=== PATIENT | male | born 1970 | race Caucasian/White ===

== ENCOUNTER 2016-11-25 05:29 | Outpatient (CLI) | payer BC ==
[~2016-11-25] VITALS: Ht 182.9 cm; Wt 108.9 kg
[2016-11-25] MEDS ORDERED: MULT1TAB69 PO (11:10)
[2016-11-25] MEDS ORDERED: CIDE300T3 PO (11:10)
[2016-11-25] MEDS ORDERED: CHOL100045 PO (11:10)
== END 2016-11-25 11:13 ==
LOC: PREOP 05:29
PROVIDERS: ATTEND Surgery
DX: Z01.818 Encounter for other preprocedural examination (principal); K21.9 Gastro-esophageal reflux disease without esophagitis

== ENCOUNTER 2016-11-30 08:05 | Day surgery (SDC) | payer BC ==
[~2016-11-30] VITALS: Ht 182.9 cm; Wt 108.9 kg
[~2016-11-30 08:05] MED LIST: CHOL100045 PO; CIDE300T3 PO; MULT1TAB69 PO
[2016-11-30] MEDS ORDERED: LACTATED RINGERS 1,000 ML IV STA (08:14)
[2016-11-30] MEDS ORDERED: HURRICAINE EXT TUBE (BENZOCAINE) XX PRN (08:15)
[2016-11-30] MEDS ORDERED: LACTATED RINGERS 1,000 ML IV ONE (08:24)
[2016-11-30 08:27] VITALS: BP 125/83
[2016-11-30] MEDS ORDERED: MIDAZOLAM 2 MG/2 ML (VERSED) VIAL ONE (08:42)
[2016-11-30] MEDS ORDERED: proPOfol 200 MG/20 ML (DIPRIVAN) VIAL IV ONE (08:42)
[2016-11-30] MEDS ORDERED: HURRICAINE EXT TUBE (BENZOCAINE) ONE (08:45)
--- NOTE | 2016-11-30 08:48 | Progress Note-Pre Operative ---
Pre-Operative Progress Note H&P Reviewed The H&P was reviewed, patient examined and no changes noted. Date Seen by Provider: Nov 30, 2016 Time Seen by Provider: 08:47 Date H&P Reviewed: Nov 30, 2016 Time H&P Reviewed: 08:48 Pre-Operative Diagnosis: GERD LILLIE LOVE DO Nov 30, 2016 8:48 am
[2016-11-30] MEDS ORDERED: PANT40TA2 PO (09:10)
--- NOTE | 2016-11-30 09:12 | Discharge Inst-Simple/Standard ---
Discharge Inst-Standard Discharge Medications New, Converted or Re-Newed RX: Transmitted to Pharmacy Patient Instructions/Follow Up Plan of Care/Instructions/FU: 2 weeks Aminah Activity as Tolerated: Yes Discharge Diet: Regular Diet LILLIE LOVE DO Nov 30, 2016 9:12 am
[2016-11-30] MEDS ORDERED: LACTATED RINGERS 1,000 ML IV SCH (09:15)
[2016-11-30] MEDS ORDERED: HURRICAINE EXT TUBE (BENZOCAINE) XX ONE (09:15)
--- NOTE | 2016-11-30 09:15 | Progress Note-Post Operative ---
Post-Operative Progess Note Surgeon (s)/Physical Therapist Aide (s) Surgeon LILLIE LOVE DO Physical Therapist Aide: na Pre-Operative Diagnosis GERD Post-Operative Diagnosis reflux esophagitis, gastric polyps Procedure & Operative Findings Date of Procedure 11/30/16 Procedure Performed/Findings egd c biopsies Anesthesia Type per [facility] Estimated Blood Loss Estimated blood loss (mL): scant Specimens/Packing Specimens Removed antrum, ge junction LILLIE LOVE DO Nov 30, 2016 9:15 am
[2016-11-30 09:25] VITALS: BP 116/73
--- NOTE | 2016-11-30 09:43 | OPERATIVE REPORT ---
DATE OF SERVICE: 11/30/2016 PREOPERATIVE DIAGNOSIS: Gastroesophageal reflux disease. POSTOPERATIVE DIAGNOSIS: Reflux esophagitis. Gastric polyps. PROCEDURE: EGD with biopsies. SURGEON: Lillie Burr DO ANESTHESIA: Per MDA. ESTIMATED BLOOD LOSS: Scant. SPECIMENS: Antrum and GE junction. INDICATIONS: The patient is a 46-year-old male with gastroesophageal reflux disease. He has been taking Prilosec, which does not have control of his symptoms. He understands risks and benefits of procedure and wished to proceed with procedure. Consent was signed in the chart. PROCEDURE: The patient was taken to the endoscopy suite, placed in left lateral recumbent position. Timeout was performed. Scope was inserted in mouth, down the esophagus, stomach and into the duodenum without difficulty. There were no polyps, masses or ulcerations. Scope was then slowly retracted back into the stomach, which was further insufflated. Some small benign appearing gastric polyps present. Biopsy, antrum was obtained. Scope was retroflexed noting no hiatal hernia, no other pathology. Scope was returned to its normal position, slowly withdrawn. GE junction had some erythematous changes consistent with some reflux esophagitis. Biopsy was obtained. Scope was then slowly retracted until completely removed, noting no other pathology. The patient tolerated the procedure well without any complications and was taken to recovery room in stable condition. RECOMMENDATIONS: The patient will be switched to Protonix 40 mg daily to see how he is doing with his symptoms. We will await pathology results. Depending on pathology results would repeat scope anywhere from 6 months to 2 years. Job ID: [id number] DocumentID: [id number] Dictated Date: 11/30/2016 09:17:34 Mortgage Loan Specialist Date: 11/30/2016 09:42:23 Dictated By: LILLIE BURR DO
[2016-11-30 09:45] VITALS: BP 124/93
[2016-11-30 09:50] VITALS: BP 124/93
== END 2016-11-30 09:50 | disposition home or self-care (01) ==
LOC: ENDO 08:05
PROVIDERS: ATTEND Surgery
DX: K21.0 Gastro-esophageal reflux disease with esophagitis (principal); K31.7 Polyp of stomach and duodenum; K22.70 Barrett's esophagus without dysplasia
CPT/HCPCS: 88305

== ENCOUNTER → 2017-07-25 | Outpatient (CLI) | payer BC ==
[~2017-07-25] MED LIST changes: +PANT40TA2 PO
--- NOTE | 2017-07-25 13:46 | Diagnostic Imaging Report ---
PROCEDURE: US Hepatic (Liver). TECHNIQUE: Multiple real-time grayscale images were obtained over the right upper quadrant in various projections. INDICATION: Esophageal varices. Liver is enlarged at 22.5 cm. There is increased echogenicity throughout the liver consistent with hepatic steatosis. No discrete liver mass is identified. The gallbladder is without stones or sludge. No wall thickening or pericholecystic fluid is seen. There is no biliary ductal dilatation. Pancreas was obscured by bowel gas. The right kidney is unremarkable. There is no ascites. IMPRESSION: Hepatomegaly and hepatic steatosis. No other significant abnormality is detected. Dictated by: Dictated on workstation # [id number]
== END ==
LOC: RAD 07:45
PROVIDERS: ATTEND Internal Medicine Gastroenterology
DX: K76.0 Fatty (change of) liver, not elsewhere classified (principal); I85.00 Esophageal varices without bleeding
CPT/HCPCS: 76705

== ENCOUNTER 2017-12-01 20:00 | Outpatient (CLI) | payer BC | END 2017-12-02 05:40 | disposition home or self-care (01) | LOC: SLEEP 20:00 | PROVIDERS: ATTEND Internal Medicine | DX: G47.33 Obstructive sleep apnea (adult) (pediatric) (principal); G47.10 Hypersomnia, unspecified; R06.83 Snoring | CPT/HCPCS: 95811 ==

== ENCOUNTER 2018-05-02 05:41 | Outpatient (CLI) | payer BC ==
[~2018-05-02] VITALS: Ht 182.9 cm; Wt 108.9 kg
[2018-05-02] MEDS ORDERED: CYAN50008 PO (10:49)
== END 2018-05-02 11:56 | disposition home or self-care (01) ==
LOC: PREOP 05:41
PROVIDERS: ATTEND Surgery
DX: Z01.818 Encounter for other preprocedural examination (principal)

== ENCOUNTER 2018-05-09 07:12 | Day surgery (SDC) | payer BC ==
[~2018-05-09] VITALS: Ht 182.9 cm; Wt 108.9 kg
[~2018-05-09 07:12] MED LIST changes: +CYAN50008 PO; +LACTATED RINGERS 1,000 ML IV ONE
--- OUTSIDE RECORDS SUMMARY | 2018-05-09 07:15 | XMS REPORT | Continuity of Care Document ---
Author Author [facility] Organization [facility] Address Unknown Phone Unavailable Allergies Active Description Code Type Severity Reaction Onset Reported/Identified Relationship to Patient Clinical Status Yes No Known Drug Allergies [id number] Drug Allergy Unknown N/A 05/02/2018 Medications There is no data. Problems Date Dx Coded Attending Type Code Diagnosis Diagnosed By 02/28/2014 Ot 327.23 05/24/2014 Ot 327.23 11/14/2014 BETH BYNUM DO Ot 511.0 11/14/2014 Ot 327.23 11/14/2014 BETH BYNUM DO Ot 511.0 01/07/2015 Ot 327.23 01/07/2015 BETH BYNUM DO Ot 511.0 07/20/2015 Ot 327.23 OBSTRUCTIVE SLEEP APNEA (ADULT) (PEDIATR 07/20/2015 BETH BYNUM DO Ot 511.0 PLEURISY W/O EFFUS OR TB 08/12/2015 Ot 327.23 OBSTRUCTIVE SLEEP APNEA (ADULT) (PEDIATR 08/12/2015 BETH BYNUM DO Ot 511.0 PLEURISY W/O EFFUS OR TB 09/30/2015 BETH BYNUM DO Ot 511.0 PLEURISY W/O EFFUS OR TB 10/02/2015 BETH BYNUM DO Ot 511.0 PLEURISY W/O EFFUS OR TB 01/06/2016 BETH BYNUM DO Ot 511.0 PLEURISY W/O EFFUS OR TB 01/07/2016 BETH BYNUM DO Ot 511.0 PLEURISY W/O EFFUS OR TB 08/20/2016 BETH BYNUM DO Ot 511.0 PLEURISY W/O EFFUS OR TB 11/18/2016 BETH BYNUM DO Ot 511.0 PLEURISY W/O EFFUS OR TB 11/25/2016 LILLIE LOVE DO Ot K21.9 GASTRO-ESOPHAGEAL REFLUX DISEASE WITHOUT 11/25/2016 LILLIE LOVE DO Ot Z01.818 ENCOUNTER FOR OTHER PREPROCEDURAL EXAMIN 11/30/2016 LILLIE LOVE DO Ot K21.0 GASTRO-ESOPHAGEAL REFLUX DISEASE WITH ES 11/30/2016 LOVE DOLILLIE D Ot K22.70 CONTEH'S ESOPHAGUS WITHOUT DYSPLASIA 11/30/2016 LOVE DOLILLIE D Ot K31.7 POLYP OF STOMACH AND DUODENUM 12/02/2016 LOVE DOLILLIE D Ot K21.0 GASTRO-ESOPHAGEAL REFLUX DISEASE WITH ES 12/02/2016 LOVE DOLILLIE Ot K22.70 CONTEH'S ESOPHAGUS WITHOUT DYSPLASIA 12/02/2016 LOVE DOLILLIE Ot K31.7 POLYP OF STOMACH AND DUODENUM 12/07/2016 LILLIE LOVE DO Ot K21.0 GASTRO-ESOPHAGEAL REFLUX DISEASE WITH ES 12/07/2016 LILLIE LOVE DO Ot K22.70 CONTEH'S ESOPHAGUS WITHOUT DYSPLASIA 12/07/2016 LILLIE LOVE DO Ot K31.7 POLYP OF STOMACH AND DUODENUM 06/28/2017 BETH BYNUM DO Ot 511.0 PLEURISY W/O EFFUS OR TB 07/22/2017 BETH BYNUM DO Ot 511.0 PLEURISY W/O EFFUS OR TB 07/26/2017 ERIKA MAZARIEGOS DO Ot I85.00 ESOPHAGEAL VARICES WITHOUT BLEEDING 07/26/2017 ERIKA MAZARIEGOS DO Ot K76.0 FATTY (CHANGE OF) LIVER, NOT ELSEWHERE C 08/10/2017 ERIKA MAZARIEGOS DO Ot I85.00 ESOPHAGEAL VARICES WITHOUT BLEEDING 08/10/2017 ERIKA MAZARIEGOS DO Ot K76.0 FATTY (CHANGE OF) LIVER, NOT ELSEWHERE C 11/25/2017 BETH BYNUM DO Ot 511.0 PLEURISY W/O EFFUS OR TB 11/25/2017 ERIKA MAZARIEGOS DO Ot I85.00 ESOPHAGEAL VARICES WITHOUT BLEEDING 11/25/2017 ERIKA MAZARIEGOS DO Ot K76.0 FATTY (CHANGE OF) LIVER, NOT ELSEWHERE C 12/02/2017 BETH BYNUM DO Ot G47.10 HYPERSOMNIA, UNSPECIFIED 12/02/2017 BETH BYNUM DO Ot G47.33 OBSTRUCTIVE SLEEP APNEA (ADULT) (PEDIATR 12/02/2017 BYNUM DO, BETH J Ot R06.83 SNORING 12/05/2017 BYNUM DO, BETH J Ot G47.10 HYPERSOMNIA, UNSPECIFIED 12/05/2017 BYNUM DO, BETH J Ot G47.33 OBSTRUCTIVE SLEEP APNEA (ADULT) (PEDIATR 12/05/2017 BYNUM DO, BETH Bah Ot R06.83 SNORING 12/05/2017 BYNUM DO, BETH Bah Ot G47.10 HYPERSOMNIA, UNSPECIFIED 12/05/2017 BYNUM DO, BETH Niurka Ot G47.33 OBSTRUCTIVE SLEEP APNEA (ADULT) (PEDIATR 12/05/2017 BYNUM DO, BETH Bah Ot R06.83 SNORING 12/07/2017 BYNUM DO, BETH Bah Ot G47.10 HYPERSOMNIA, UNSPECIFIED 12/07/2017 BYNUM DO, BETH Bah Ot G47.33 OBSTRUCTIVE SLEEP APNEA (ADULT) (PEDIATR 12/07/2017 BYNUM DO, BETH Bah Ot R06.83 SNORING 05/02/2018 LILLIE LOVE DO Ot Z01.818 ENCOUNTER FOR OTHER PREPROCEDURAL EXAMIN 05/03/2018 LILLIE LOVE DO Ot Z01.818 ENCOUNTER FOR OTHER PREPROCEDURAL EXAMIN Procedures There is no data. Results There is no data. Encounters ACCT No. Visit Date/Time Discharge Status Pt. Type Provider Facility Loc./Unit Complaint [id number] 05/02/2018 05:41:00 05/02/2018 11:56:00 DIS Outpatient LILLIE LOVE DO [facility] PREOP COLONOSCOPY [id number] 12/01/2017 20:00:00 12/02/2017 05:40:00 DIS Outpatient BETH BYNUM DO [facility] SLEEP G47.33 OBSTRUCTIVE SLEEP APNEA [id number] 07/25/2017 07:45:00 07/25/2017 23:59:59 CLS Outpatient ERIKA MAZARIEGOS DO [facility] RAD ESOPHAGEAL VARICES [id number] 11/30/2016 08:05:00 11/30/2016 09:50:00 DIS Outpatient LILLIE LOVE DO [facility] ENDO REFLUX [id number] 11/25/2016 05:29:00 11/25/2016 11:13:00 DIS Outpatient LILLIE LOVE DO [facility] PREOP REFLUX [id number] 11/01/2014 13:12:00 11/01/2014 23:59:59 CLS Outpatient BETH BYNUM DO [facility] RAD PLEURISY [id number] 05/09/2018 07:12:00 ACT Outpatient LILLIE LOVE DO [facility] ENDO SCREENING [id number] 03/05/2010 19:46:00 Document Registration
[2018-05-09] MEDS ORDERED: PROPOFOL INJECTION 50 ML IV ONE (07:24)
[2018-05-09] MEDS ORDERED: MIDAZOLAM 2 MG/2 ML (VERSED) VIAL ONE (07:24)
[2018-05-09 07:46] VITALS: BP 132/85
[2018-05-09] MEDS ORDERED: LACTATED RINGERS 1,000 ML IV ONE (08:15)
--- NOTE | 2018-05-09 08:28 | Progress Note-Post Operative ---
Post-Operative Progess Note Surgeon (s)/Sales Representative [employer] (s) Surgeon LILLIE LOVE DO Sales Representative [employer]: na Pre-Operative Diagnosis screening colonoscopy Post-Operative Diagnosis rectal polyp Procedure & Operative Findings Date of Procedure 05/09/18 Procedure Performed/Findings colonoscopy with hot bx polypectomy x1 Anesthesia Type per rotor pilot Estimated Blood Loss Estimated blood loss (mL): none Specimens/Packing Specimens Removed rectal polyp LILLIE LOVE DO May 09, 2018 08:28
[2018-05-09 08:30] VITALS: BP 86/56
--- NOTE | 2018-05-09 08:30 | Discharge Inst-Simple/Standard ---
Discharge Inst-Standard Patient Instructions/Follow Up Plan of Care/Instructions/FU: 2 weeks Aminah Activity as Tolerated: Yes Discharge Diet: Regular Diet LILLIE LOVE DO May 09, 2018 08:29
[2018-05-09 09:00] VITALS: BP 105/81
[2018-05-09 09:15] VITALS: BP 105/81
--- NOTE | 2018-05-09 11:52 | Anesthesia-General Post-Op ---
MAC Patient Condition Mental Status/LOC: Same as Preop Cardiovascular: Satisfactory Nausea/Vomiting: Absent Respiratory: Satisfactory Pain: Controlled Complications: Absent Post Op Complications Complications None Follow Up Care/Instructions Patient Instructions None needed. Anesthesiology Discharge Order Discharge Order Patient is doing well, no complaints, stable vital signs, no apparent adverse anesthesia problems. No complications reported per nursing. UZIEL HENDERSON CRNA May 09, 2018 11:52
--- NOTE | 2018-05-09 12:10 | OPERATIVE REPORT ---
DATE OF SERVICE: 05/09/2018 PREOPERATIVE DIAGNOSIS: Screening colonoscopy. POSTOPERATIVE DIAGNOSIS: Rectal polyp. PROCEDURE PERFORMED: Colonoscopy with hot biopsy polypectomy x1. SURGEON: Lillie Burr DO. ANESTHESIA: Per WREATH MACHINE OPERATOR. ESTIMATED BLOOD LOSS: None. COMPLICATIONS: None. INDICATION: The patient is a 48-year-old male due for screening colonoscopy. He understands risks and benefits of procedure and wished to proceed with procedure. Consent was signed in the chart. DESCRIPTION OF PROCEDURE: The patient was taken to the endoscopy suite, placed in left lower recumbent position. Timeout was performed. A digital rectal exam was performed. There were no palpable polyps, mass or ulcerations. Normal-sized prostate with normal smooth normal feel. Scope was inserted in the rectum and advanced all the way to the cecum with minimal difficulty. Prep was adequate. Scope was then slowly retracted back. There were no polyps, masses or ulcerations in the cecum. Scope was intubated into the ileocecal valve into the terminal ileum which had normal appearance. Scope was continuously slowly retracted back. There were no polyps, masses or ulcerations within the ascending, transverse, descending and sigmoid colon. Within the rectum, there is a small polyp, which hot biopsy polypectomy was performed. Scope was retroflexed noting no other pathology. Scope was returned to its normal position, slowly withdrawn until completely removed. The patient tolerated the procedure well without any complications. He was taken to recovery room in stable condition. RECOMMENDATIONS: The patient will need repeat colonoscopy in 5 years. Any issues before that will be seen at that time. The patient will follow up in office in two weeks to discuss pathology results. Job ID: [id number] DocumentID: [id number] Dictated Date: 05/09/2018 08:27:17 Yarn Texturing Machine Operator Date: 05/09/2018 12:10:22 Dictated By: LILLIE BURR DO MTDD
== END 2018-05-09 09:15 | disposition home or self-care (01) ==
LOC: ENDO 07:12
PROVIDERS: ATTEND Surgery
DX: Z12.11 Encounter for screening for malignant neoplasm of colon (principal); K62.1 Rectal polyp; G47.33 Obstructive sleep apnea (adult) (pediatric); K22.70 Barrett's esophagus without dysplasia

== ENCOUNTER → 2019-03-07 | Outpatient (CLI) | payer BC ==
[~2019-03-07] VITALS: Ht 182 cm; Wt 106.0 kg
[~2019-03-07] MED LIST changes: +CATHETER FLUSH 10 ML SYR IV PRN; -LACTATED RINGERS 1,000 ML IV ONE
[2019-03-07 09:15] VITALS: BP 159/65
--- NOTE | 2019-03-07 23:25 | STRESS TEST ---
DATE OF SERVICE: 03/07/2019 EXERCISE MYOVIEW STRESS TEST REFERRING PHYSICIAN: Dr. Kermit Garcia Baseline heart rate is 73, baseline blood pressure 134/81. Baseline EKG is sinus rhythm with no ischemic changes. In summary, the patient was injected with 10.72 mCi of technetium-99 Myoview and the resting images were obtained. Then, the patient started exercising with a baseline heart rate, blood pressure and EKG mentioned above. The patient was able to exercise for a total of 10 minutes on standard Jacob protocol. With peak exercise level, EKG was showing minimal nondiagnostic changes, blood pressure was 164/56. During recovery, heart rate and blood pressure returned to baseline, EKG returned to baseline. The resting and stress images were reviewed and compared in the short axis, horizontal long axis, and vertical long axis views. Review of the images showed no significant ischemia or infarction. SSS is 3, SDS 3, TID value 0.91. On the gated images, the left ventricle appeared to be normal size with normal contractility. Calculated ejection fraction 61%. CONCLUSION: 1. Good exercise tolerance, a total of 10 minutes on standard Jacob protocol, 11.7 METS achieving 91% of maximum expected heart rate. 2. Appropriate heart rate and blood pressure response to exercise returned to baseline during recovery. 3. Nondiagnostic EKG changes with exercise returned to baseline during recovery. 4. No ischemia or infarction on SPECT images. 5. Normal left ventricular size with normal contractility. Calculated ejection fraction 61%. Job ID: [id number] DocumentID: [id number] Dictated Date: 03/07/2019 17:04:41 Hot Dog Vender Date: 03/07/2019 23:24:40 Dictated By: ARNOLD RODRIGUEZ MD
== END ==
LOC: CARD 07:06
PROVIDERS: ATTEND Internal Medicine Cardiovascular Disease
DX: I10 Essential (primary) hypertension (principal); E66.9 Obesity, unspecified; K29.60 Other gastritis without bleeding; R07.9 Chest pain, unspecified; R00.2 Palpitations
CPT/HCPCS: 78452; 93017

== ENCOUNTER → 2019-03-08 | Outpatient (CLI) | payer BC ==
[~2019-03-08] MED LIST changes: -CATHETER FLUSH 10 ML SYR IV PRN
== END ==
LOC: CARD 09:21
PROVIDERS: ATTEND Internal Medicine Cardiovascular Disease
DX: K29.60 Other gastritis without bleeding (principal); I10 Essential (primary) hypertension; E66.9 Obesity, unspecified; R00.2 Palpitations; R07.9 Chest pain, unspecified
CPT/HCPCS: 93306

== ENCOUNTER → 2019-12-13 | Outpatient (CLI) | payer BC ==
[~2019-12-13] MED LIST changes: +MULT-567 PO; -MULT1TAB69 PO
== END ==
LOC: LABNPT 08:49
PROVIDERS: ATTEND Internal Medicine Gastroenterology
DX: Z01.812 Encounter for preprocedural laboratory examination (principal); Z20.828 Contact with and (suspected) exposure to other viral communicable diseases
CPT/HCPCS: 87635

== ENCOUNTER 2021-09-23 09:48 | Outpatient (RCR) | payer BC ==
[~2021-09-23 09:48] MED LIST changes: -CYAN50008 PO; +CYAN50009 PO
== END 2021-09-24 | disposition home or self-care (01) ==
PROVIDERS: ATTEND Anesthesiology Pain Medicine
DX: M54.12 Radiculopathy, cervical region (principal); R20.2 Paresthesia of skin

== ENCOUNTER 2021-10-23 08:27 | Outpatient (RCR) | payer BC | END 2021-10-25 | disposition home or self-care (01) | PROVIDERS: ATTEND Anesthesiology Pain Medicine | DX: M54.12 Radiculopathy, cervical region (principal); R20.2 Paresthesia of skin ==

== ENCOUNTER 2021-11-18 08:30 | Outpatient (RCR) | payer BC | END 2021-11-25 | disposition home or self-care (01) | PROVIDERS: ATTEND Anesthesiology Pain Medicine | DX: M54.12 Radiculopathy, cervical region (principal); R20.2 Paresthesia of skin ==

== ENCOUNTER → 2022-02-10 | Outpatient (CLI) | payer BC ==
--- NOTE | 2022-02-10 09:52 | Diagnostic Imaging Report ---
PROCEDURE: CT abdomen and pelvis without contrast. TECHNIQUE: Multiple contiguous axial images were obtained through the abdomen and pelvis without the use of intravenous contrast. Auto Exposure Controls were utilized during the CT exam to meet ALARA standards for radiation dose reduction. INDICATION: Gross hematuria and right-sided back pain. No prior studies are available for comparison. Imaging through the lung bases does show an indeterminate nodule in the left lower lobe measuring 7 mm. The liver and gallbladder are unremarkable. There is no biliary duct dilatation. Pancreas and spleen are unremarkable. No adrenal mass is identified. No renal or ureteral calculi are seen. There is no hydronephrosis. There is a low-attenuation lesion in the cortex of the left kidney lower pole measuring 2.9 cm consistent with a cyst. The bladder is decompressed. The aorta is nonaneurysmal. No central retroperitoneal or mesenteric lymphadenopathy is identified. The bowel loops are nonobstructed. There are diverticula of the descending and sigmoid colon but no evidence of acute diverticulitis. No free fluid or fluid collection is seen. Prostate is enlarged and contains central calcifications. No pelvic lymphadenopathy is identified. The bony structures are nonacute. IMPRESSION: 1. No evidence of urinary tract calculi or obstruction. 2. Left renal cysts. 3. Uncomplicated diverticulosis. 4. Prostatomegaly. Dictated by: Dictated on workstation # [id number]
== END ==
LOC: RAD 09:45
PROVIDERS: ATTEND Urology
DX: N28.1 Cyst of kidney, acquired (principal); N40.0 Benign prostatic hyperplasia without lower urinary tract symptoms; K57.30 Diverticulosis of large intestine without perforation or abscess without bleeding
CPT/HCPCS: 74176

== ENCOUNTER 2022-03-02 05:44 | Outpatient (CLI) | payer BC ==
[~2022-03-02] VITALS: Ht 182.9 cm; Wt 100.7 kg
== END 2022-03-04 09:44 | disposition home or self-care (01) ==
LOC: PREOP 05:44
PROVIDERS: ATTEND Surgery
DX: Z01.818 Encounter for other preprocedural examination (principal)

== ENCOUNTER 2022-03-09 09:23 | Day surgery (SDC) | payer BC ==
[~2022-03-09] VITALS: Ht 182.9 cm; Wt 100.7 kg
[2022-03-09] MEDS ORDERED: LACTATED RINGERS 1,000 ML IV STA (09:32)
[2022-03-09 09:45] VITALS: BP 116/78
[2022-03-09] MEDS ORDERED: HURRICAINE EXT TUBE (BENZOCAINE) XX PRN (09:45)
[2022-03-09] MEDS ORDERED: HURRICAINE EXT TUBE (BENZOCAINE) ONE (09:47)
[2022-03-09] MEDS ORDERED: LACTATED RINGERS 1,000 ML IV ONE (09:47)
[2022-03-09] MEDS ORDERED: proPOfol 200 MG/20 ML (DIPRIVAN) VIAL IV ONE ×2 (11:45→11:54)
--- NOTE | 2022-03-09 11:56 | Discharge Inst-Simple/Standard ---
Discharge Inst-Standard Patient Instructions/Follow Up Plan of Care/Instructions/FU: Follow-up with Dr. Burr in 2 weeks Activity as Tolerated: Yes Discharge Diet: No Restrictions, Regular Diet LILLIE BURR DO Mar 09, 2022 11:56
--- NOTE | 2022-03-09 11:58 | Anesthesia-General Post-Op ---
MAC Patient Condition Mental Status/LOC: Same as Preop Cardiovascular: Satisfactory Nausea/Vomiting: Absent Respiratory: Satisfactory Pain: Controlled Complications: Absent Post Op Complications Complications None Follow Up Care/Instructions Patient Instructions None needed. Anesthesiology Discharge Order Discharge Order Patient is doing well, no complaints, stable vital signs, no apparent adverse anesthesia problems. No complications reported per nursing. UZIEL HENDERSON CRNA Mar 09, 2022 11:58
[2022-03-09 12:01] VITALS: BP 141/86
[2022-03-09 12:06] VITALS: BP 127/87
[2022-03-09 12:10] VITALS: BP 127/87
[2022-03-09 12:27] VITALS: BP 127/87
--- NOTE | 2022-03-09 22:52 | OPERATIVE REPORT ---
DATE OF SERVICE: 03/09/2022 PREOPERATIVE DIAGNOSIS: History of Shelley's. POSTOPERATIVE DIAGNOSES: Short segment Shelley's, gastric polyps. PROCEDURE: EGD with biopsy. SURGEON: Lillie Burr DO ANESTHESIA: Per EXTRACTOR MACHINE OPERATOR. ESTIMATED BLOOD LOSS: None. COMPLICATIONS: None. INDICATIONS: The patient is a 52-year-old male with history of Shelley's. He understands risks and benefits of the procedure and wishes to proceed. Consent was signed in chart. DESCRIPTION OF PROCEDURE: The patient was taken to the endoscopy suite, placed in the left lateral recumbent position. Timeout was performed. Scope was inserted in the mouth, down the esophagus, stomach and the duodenum without difficulty. There were no polyps, masses, ulcerations in the duodenum. Scope was slowly retracted back into the stomach where it was further insufflated. No masses or ulcerations. No erythematous changes. Multiple benign appearing polyps present. Biopsy of the antrum was obtained. Scope was retroflexed noting no other pathology. Scope was returned to its normal position, slowly withdrawn to the distal esophagus, short segment Shelley's visible. Multiple 4-quadrant biopsies were obtained. Scope was then slowly retracted back to completely remove noting no other pathology. The patient tolerated the procedure well without any complications, taken and taken to the recovery room in stable condition. RECOMMENDATIONS: The patient will need repeat endoscopy in likely 2-3 years. Any issues before that be seen at that time. PLAN: He will follow up in 2 weeks to discuss pathology results. Job ID: [id number] DocumentID: [id number] Dictated Date: 03/09/2022 11:57:01 Rubber Goods Tester Date: 03/09/2022 22:49:00 Dictated By: LILLIE BURR DO
== END 2022-03-09 12:28 | disposition home or self-care (01) ==
LOC: ENDO 09:23
PROVIDERS: ATTEND Surgery
DX: K22.70 Barrett's esophagus without dysplasia (principal); K31.7 Polyp of stomach and duodenum; K29.70 Gastritis, unspecified, without bleeding; K21.00 Gastro-esophageal reflux disease with esophagitis, without bleeding; E66.9 Obesity, unspecified; Z68.30 Body mass index [BMI] 30.0-30.9, adult; R31.9 Hematuria, unspecified
CPT/HCPCS: 88305

== ENCOUNTER → 2023-02-16 | Outpatient (CLI) | payer SELFPAY ==
--- NOTE | 2023-02-16 10:49 | Diagnostic Imaging Report ---
INDICATION: Chest tightness, coronary artery screening. CT coronary calcium study performed with noncontrast images of the heart followed by calculation of coronary calcium score. Dose reduction protocol was used. Raw data images demonstrate no mediastinal or hilar adenopathy. Aorta is normal in caliber. Visualized portions of the lung woodard are clear. The entirety of the lungs are not included on the study. There is no pleural or pericardial fluid. There is no significant coronary calcification. Coronary calcium score was 0 in all territories. IMPRESSION: Coronary artery calcium score was 0, no significant coronary calcification. Dictated by: Dictated on workstation # [id number]
== END ==
LOC: RAD 09:45
PROVIDERS: ATTEND Internal Medicine
DX: Z13.6 Encounter for screening for cardiovascular disorders (principal); R07.89 Other chest pain
CPT/HCPCS: 75571